=== PATIENT | female | born 1995 | race Caucasian/White ===

== ENCOUNTER 2017-07-29 15:42 | Outpatient (CLI) | payer OTHER ==
--- NOTE | 2017-07-29 17:01 | Non Stress Test Report ---
Non Stress Test Datetime Report Generated by CPN: 07/29/2017 17:01 DEMOGRAPHIC EGA NST: 35.4 INDICATION Indication for Study: Other Indication for Study (NST) Other: GDM, Ele[employer] FHR in office VITAL SIGNS Temperature - NST: 97.6 Pulse - NST: 98 RESP - NST: 16 NBPSYS NST: 128 NBPDIA NST: 80 MONITORING Monitor Explained: Monitor Explained; Test Explained; Patient Verbalized Understanding; Other Time on Monitor: 07/29/2017 15:55 Time off Monitor: 07/29/2017 16:29 NST Duration: 34 NST INTERVENTIONS NST Interventions: PO Hydration Physician Notified NST: A. Emmel, Provider reviewed strip BABY A: [id number] BABY A Movement : Present Contraction Frequency : No ucs FHR Baseline : 160 Accelerations : 15X15 Decelerations : None Variability : Moderate 6-25bpm NST Review: Meets Criteria for Reactive NST NST Review and Verified By : LIA MAR RN NST Results: Reactive NST REPORT Report Trigger: Send Report
--- NOTE | 2017-07-29 18:51 | RADIOLOGY REPORT (SQ) ---
EXAM DESCRIPTION: U/S OB LIMITED COMPLETED DATE/TIME: 07/29/2017 6:42 pm REASON FOR STUDY: GDM COMPARISON: None. TECHNIQUE: Limited transvaginal and transabdominal grayscale ultrasound for evaluation of specific r equested obstetrical parameters. LIMITATIONS: None. FINDINGS: CERVICAL LENGTH: 3.3 cm. Closed. EMILY: 16.5 cm. FHR: 171 beats per minute. PRESENTATION: Cephalic. OTHER: Estimated gestational age is 36 weeks 1 day. Estimated weight is 2938 g. This falls wit hin the 59th percentile. IMPRESSION: LIMITED OBSTETRICAL ULTRASOUND WITH MEASURED PARAMETERS DELINEATED ABOVE. Trimester of : Third trimester - 28 weeks to delivery. TECHNICAL DOCUMENTATION: JOB ID: [id number] [employer]- All Rights Reserved
== END 2017-07-29 18:48 | disposition home or self-care (01) ==
LOC: LC 15:42
PROVIDERS: ATTEND Specialist
DX: O36.8130 Decreased fetal movements, third trimester, not applicable or unspecified (principal); Z3A.35 35 weeks gestation of pregnancy
CPT/HCPCS: 59025; 76815

== ENCOUNTER 2017-08-05 14:34 | Inpatient (IN) | payer OTHER ==
[2017-08-05] MEDS ORDERED: RINGERS SOLUTION,LACTATED 1,000 ML IV PRN (15:10)
[2017-08-05 15:54] LABS: APPEARANCE,URINE CLEAR; BILIRUBIN,URINE NEGATIVE (NEGATIVE); GLUCOSE, URINE NEGATIVE (NEGATIVE); KETONES,URINE NEGATIVE (NEGATIVE); LEUKOCYTE ESTERASE,URINE NEGATIVE (NEGATIVE); NITRITE,URINE NEGATIVE (NEGATIVE); PROTEIN,URINE NEGATIVE (NEGATIVE); URINE SPECIFIC GRAVITY 1.004; UROBILINOGEN,URINE NEGATIVE mg/dL (<2.0)
[2017-08-05 16:01] LABS: ABSOLUTE LYMPHOCYTES (AUTO) 1.2 10^3/uL (0.5-4.7); ABSOLUTE MONOCYTES (AUTO) 0.5 10^3/uL (0.1-1.4); ABSOLUTE NEUT (AUTO) 6.8 10^3/uL (1.7-8.2); BASOPHILS % (AUTO) 0.2 % (0-2); EOSINOPHILS % (AUTO) 0.1 % (0-6); HEMATOCRIT 29.8 % (36.0-47.0); HEMOGLOBIN 10.3 g/dL (12.0-15.5); HGB HCT DIFFERENCE 1.1; LYMPHOCYTES % (AUTO) 14.3 % (13-45); MEAN CORPUSCULAR HEMOGLOBIN 28.3 pg (27.0-33.4); MEAN CORPUSCULAR HGB CONC 34.6 g/dL (32.0-36.0); MEAN CORPUSCULAR VOLUME 82 fl (80-97); MONOCYTES % (AUTO) 5.8 % (3-13); RED BLOOD COUNT 3.64 10^6/uL (3.72-5.28); RED CELL DISTRIBUTION WIDTH 14.5 % (11.5-14.0); SEGMENTED NEUTROPHILS % (AUTO) 79.6 % (42-78); WHITE BLOOD COUNT 8.5 10^3/uL (4.0-10.5)
[2017-08-05 16:02] LABS: URINE BARBITURATES SCREEN NEGATIVE; URINE METHADONE SCREEN NEGATIVE; URINE OPIATES LOW NEGATIVE; URINE PHENCYCLIDINE SCREEN NEGATIVE
[2017-08-05] MEDS ORDERED: PENICILLIN G-K 5 MILLION UNIT VIAL ONE ×2 (16:10→20:53)
[2017-08-05] MEDS ORDERED: OXYTOCIN/NORMAL SALINE 20 UNIT/1,000 ML RTUINJ IV PRN (16:10)
[2017-08-05] MEDS ORDERED: OXYTOCIN/NORMAL SALINE 20 UNIT/1,000 ML RTUINJ ONE (16:10)
[2017-08-05] MEDS ORDERED: PENICILLIN G POTASSIUM 5,000,000 UNIT in DEXTROSE 5%-WATER 100 ML IV ONE (16:11)
[2017-08-05 17:15] LABS: CHLAM PCR NOT DETECTED (NOT DETECT)
--- NOTE | 2017-08-05 18:49 | L&D Progress Notes ---
PROGRESS NOTES Datetime Report Generated by CPN: 08/05/2017 18:49 PROGRESS NOTE Impression: Normal Progression of Labor Procedures: Sterile Vag Exam Procedures- Other: Cooks Catheter placement Plan: Induction Informed Consent Obtained: Vaginal Delivery; Induction of Labor; Risks, Benefits and Alternatives Discussed Comment: Vertex by US. Cvx 1/50/-3/post/medium. Continue pitocin. Cooks catheter placed. reviewed IOL due to PROM at 36+4ega. PCN for GBS prophy. Nubain for pain now per pt request. Anticpate . Reassuring FWB. Pelvis adequate for SARA VAGINAL EXAM Dilatation: 2 Effacement: 80 Station: -3 Contractions: irregular MEMBRANES Membranes: Ruptured Amniotic Fluid Color: Clear FETUS A FHR - Baseline: 150 Monitoring: External US Variability: Moderate 6-25bpm Accelerations: 15X15 Decelerations: None FHR Category: Category I Estimated Weight (gm): 2900 Presentation: Vertex SIGNATURE SIGNATURE: [id number];[id number] SIGNATURE: [id number] Signature: with User ID: [email or web address]
[2017-08-05] MEDS ORDERED: NALBUPHINE HCL INJ 10 MG/1 ML AMPULE ONE (19:04)
[2017-08-05] MEDS ORDERED: NALBUPHINE HCL INJ 10 MG/1 ML AMPULE INJ ONE (19:10)
[2017-08-05] MEDS ORDERED: PENICILLIN G POTASSIUM 2,500,000 UNIT in DEXTROSE 5%-WATER 50 ML IV SCH (20:12)
[2017-08-05] MEDS: PENICILLIN G-K 5 MILLION UNIT VIAL IV SCH (20:56)
[2017-08-05] MEDS ORDERED: ONDANSETRON HCL INJ/PF 4 MG/2 ML SDV ONE (22:07)
[2017-08-05] MEDS ORDERED: ONDANSETRON HCL INJ/PF 4 MG/2 ML SDV IV ONE (22:20)
--- NOTE | 2017-08-05 23:01 | L&D Progress Notes ---
PROGRESS NOTES Datetime Report Generated by CPN: 08/05/2017 23:00 PROGRESS NOTE Impression: Normal Progression of Labor Procedures: Sterile Vag Exam Plan: Continue Present Management; Induction Informed Consent Obtained: Vaginal Delivery; Induction of Labor; Risks, Benefits and Alternatives Discussed Vital Signs : Reviewed Comment: Cervix exam done. FB removed. cvx 6/60/-2. Pt desires epidural at some time but desires to trial of birthing ball and moving during monitoring. Anticipate . VAGINAL EXAM Dilatation: 6 Effacement: 60 Station: -2 Contractions: q2 MEMBRANES Membranes: Ruptured Amniotic Fluid Color: Clear FETUS A FHR - Baseline: 125 Monitoring: External US Variability: Moderate 6-25bpm Accelerations: 15X15 Decelerations: None FHR Category: Category I FETUS C SIGNATURE: [id number];[id number] Signature: with User ID: [email or web address]
--- NOTE | 2017-08-06 00:22 | L&D Progress Notes ---
PROGRESS NOTES Datetime Report Generated by CPN: 08/06/2017 00:22 PROGRESS NOTE Impression: Normal Progression of Labor Procedures: Sterile Vag Exam Plan: Continue Present Management; Induction Informed Consent Obtained: Vaginal Delivery; Risks, Benefits and Alternatives Discussed Vital Signs : Reviewed Comment: pt desires epidural. Cvx now /-1. Anticiapte . Pt to obtain epidural - will notify ANesthesia FETUS A FHR - Baseline: 150 Variability: Moderate 6-25bpm Accelerations: 15X15 Decelerations: Variable FHR Category: Category I FETUS C SIGNATURE: [id number];[id number] Signature: Electronically signed by Crystal Mancera MD ([facility]) on 08/06/2017 at 00:21 with User ID: [email or web address]
[2017-08-06] MEDS ORDERED: EPHEDRINE SULFATE INJ 50 MG/1 ML AMPULE ONE (00:39)
[2017-08-06] MEDS ORDERED: BUPIVACAINE HCL 0.25 % INJ/PF (2.5 MG/1 ML) 30 ML VIAL ONE (00:40)
[2017-08-06] MEDS ORDERED: LIDOCAINE 1% INJ-PF (10 MG/ML) 30 ML SDV ONE (00:40)
[2017-08-06] MEDS ORDERED: FENTANYL/BUPIVACAINE/NS/PF 200 MCG/100 ML RTUINJ EPI ONE (00:40)
[2017-08-06] MEDS ORDERED: MISOPROSTOL 0.2 MG TABLET ONE (00:40)
[2017-08-06] MEDS ORDERED: PENICILLIN G-K 5 MILLION UNIT VIAL ONE ×2 (01:19→06:15)
[2017-08-06] MEDS: PENICILLIN G-K 5 MILLION UNIT VIAL IV SCH ×2 (01:28→06:16)
--- NOTE | 2017-08-06 07:33 | L&D Progress Notes ---
PROGRESS NOTES Datetime Report Generated by CPN: 08/06/2017 07:33 PROGRESS NOTE Impression: Normal Progression of Labor Procedures- Other: pitocin restarted Plan: Continue Present Management; Induction Informed Consent Obtained: Vaginal Delivery; Risks, Benefits and Alternatives Discussed Vital Signs : Reviewed; Within Normal Limits Comment: Pt havng irregular early this am after epidural. Pitocin rest done with 250ml bolus of D5. Pitocin now restarted and at 9. Plan to increase pitocin per protocol. last cvx 3xam and still felt like bryan bulb cervix. FETUS A FHR - Baseline: 135 Variability: Moderate 6-25bpm Accelerations: 15X15 Decelerations: None FHR Category: Category I FETUS C SIGNATURE: [id number];[id number] Signature: with User ID: [email or web address]
[2017-08-06] MEDS ORDERED: OXYTOCIN/NORMAL SALINE 20 UNIT/1,000 ML RTUINJ ONE (08:40)
[2017-08-06] MEDS ORDERED: DIBUCAINE 1% OINTMENT 28 GM TP PRN (10:18)
[2017-08-06] MEDS ORDERED: ACETAMINOPHEN 650 MG SUPP.RECT PR PRN (10:18)
[2017-08-06] MEDS ORDERED: PROMETHAZINE HCL 25 MG SUPP.RECT PR PRN (10:18)
[2017-08-06] MEDS ORDERED: OXYTOCIN/NORMAL SALINE 20 UNIT/1,000 ML RTUINJ IV PRN (10:18)
[2017-08-06] MEDS ORDERED: MAGNESIUM HYDROXIDE SUSP 30 ML UDCUP PO PRN (10:18)
[2017-08-06] MEDS ORDERED: ACETAMINOPHEN WITH CODEINE #3 TABLET PO PRN ×2 (10:18)
[2017-08-06] MEDS ORDERED: GLYCERIN/WITCH HAZEL LEAF 1 EACH MED..PAD TP PRN (10:18)
[2017-08-06] MEDS ORDERED: DIPH/PERTUSS(ACELL)/TETANUS VAC/PF 0.5 ML SYR (>=10YO) IM PRN (10:18)
[2017-08-06] MEDS ORDERED: ZOLPIDEM TARTRATE 5 MG TABLET PO PRN (10:18)
[2017-08-06] MEDS ORDERED: NA PHOS,M-B/NA PHOS,DI-BA (ADULT) 133 ML ENEMA PR PRN (10:18)
[2017-08-06] MEDS ORDERED: PROMETHAZINE HCL INJ 25 MG/1 ML VIAL IV PRN (10:18)
[2017-08-06] MEDS ORDERED: PROMETHAZINE HCL 25 MG TABLET PO PRN (10:18)
[2017-08-06] MEDS ORDERED: MEASLES,MUMPS&RUBELLA VACC/PF 0.5 ML VIAL SUBCUT PRN (10:18)
[2017-08-06] MEDS ORDERED: BENZOCAINE/MENTHOL AEROSOL SPRAY 56 ML TOP PRN (10:18)
[2017-08-06] MEDS ORDERED: PSEUDOEPHEDRINE HCL 30 MG TABLET PO PRN (10:18)
[2017-08-06] MEDS ORDERED: DIPHENHYDRAMINE HCL 25 MG CAPSULE PO PRN (10:18)
--- NOTE | 2017-08-06 11:54 | Admission Physical ---
Datetime Report Generated by CPN: 08/06/2017 11:54 CURRENT ADMISSION Hx Assessment: The History has been Reviewed and is Current Chief Complaint: Suspected Ruptured Membranes Chief Complaint Other: SROM 1400 Indication for Induction: Not Applicable Admit Impression- Other: augmentation Admit Plan: Admit to Unit; Initiate Labor Augmentation Protocol ALLERGIES Medication Allergies: No Medication Allergies: No Known Allergies (08/05/2017) Medication Allergies: No Known Allergies (07/29/2017) Latex: No Latex Allergies OBSTETRICAL HISTORY EDC: 08/29/2017 00:00 : 1 Para: 0 Term: 0 : 0 SAB: 0 IAB: 0 Ectopic: 0 Livin Cesareans: 0 VBACs: 0 Multiple Births: 0 Gestational Diabetes: Yes Rh Sensitization: No Incompetent Cervix: No MARY: No Infertility: No ART Treatment: No Uterine Anomaly: No IUGR: No Hx Previous C/S: No Macrosomia: No Hx Loss/Stillborn: No PIH: No Hx : No Placenta Previa/Abruption: No Depression/PP Depression: No PTL/PROM: No Post Hemorrhage: No Current Procedures: Ultrasound; NST Obstetrical History Comments: G1 - Current GDM SEE RECORDS Alcohol: No Marijuana : No Cocaine: No Other Illicit Drugs: No Cigarettes: Never Smoker. [id number] MEDICAL HISTORY Diabetes: Yes Diabetes Type: Gestational Diabetes Blood Transfusion: No Pulmonary Disease (Asthma, TB): No Breast Disease: No Hypertension: No Database Manager Surgery: No Heart Disease: No Hosp/Surgery: No Autoimmune Disorder: No Anesthetic Complications: No Kidney Disease: No Abnormal Pap Smear: No Neuro/Epilepsy: No Psychiatric Disorders: No Other Medical Diseases: No Hepatitis/Liver Disease: No Significant Family History: No Varicosities/Phlebitis: No Trauma/Violence : No Thyroid Dysfunction: No INFECTIOUS HISTORY Gonorrhea: No Genital Herpes: No Chlamydia: No Tuberculosis: No Syphilis: No Hepatitis: No HIV/AIDS Exposure: No Rash or Viral Illness: No HPV: No PHYSICAL EXAM General: Normal HEENT: Normal Neurologic: Normal Thyroid: Normal Heart: Normal Lungs: Normal Breast: Normal Back: Normal Abdomen: Normal Genitourinary Exam: Normal Extremities: Normal DTRs: Normal Pelvic Type: Adequate Vital Signs: Reviewed VAGINAL EXAM Dilatation: 6 Dilatation: 2 Effacement: 60 Effacement: 80 Station: -2 Station: -3 Contraction Comments: q2 Contraction Comments: irregular MEMBRANES Membranes: Ruptured Membranes: Ruptured Amniotic Fluid Color: Clear Amniotic Fluid Color: Clear FETUS A EGA: 36.4 Monitoring: External US FHR- Baseline: 150 Variability: Moderate 6-25bpm Accelerations: 15X15 Decelerations: None FHR Category: Category I Estimated Weight (gm): 2900 Presentation: Vertex Admit Comment: SROM at 1400, clear, irregular ctx. GBS unknown, will tx with pcn GDMA1 Rubella non-immune NKDA Admit to L _ D PCN, Pitocin per protocol. PLANS FOR LABOR AND DELIVERY Labor and Delivery: None Pain Management: Epidural Feeding Preference: Breast Benefit of Breast Feed Discussed: Yes INFORMED CONSENT Informed Consent Obtained: Vaginal Delivery; Risks, Benefits and Alternatives Discussed Informed Consent Obtained: Vaginal Delivery; Risks, Benefits and Alternatives Discussed Informed Consent Obtained: Vaginal Delivery; Induction of Labor; Risks, Benefits and Alternatives Discussed Informed Consent Obtained: Vaginal Delivery; Induction of Labor; Risks, Benefits and Alternatives Discussed Assignment: Crystal Mancera MD Signature: with User ID: [email or web address] : with User ID: [email or web address]
--- NOTE | 2017-08-06 12:42 | Delivery Summary ---
Del Sum A-C Datetime Report Generated by CPN: 08/06/2017 12:42 DELIVERY PERSONNEL DELIVERY PERSONNEL: [id number] Delivery Doctor:: Linda Sequeira MD Nurse Machine Washer Certified:: Samanta Lopez CNM Labor and Delivery Nurse:: Devin Redmond RNmanager china Nurse:: Carito Mcmillan RN Nursery Nurse:: Ana Isabel RN Combat Engineer/PROJECT MANAGEMENT SPECIALIST: Latisha Nuno CNA II Combat Engineer/PROJECT MANAGEMENT SPECIALIST: Cecelia Reed, MANUFACTURING ENGINEER AUTOMOTIVE MATERNAL INFORMATION Delivery Anesthesia: Epidural Medications After Delivery: Pitocin Bolus-Please Comment; Pitocin Drip 20 Units/1000ml NSS Estimated Blood Loss (ml): 200 Maternal Complications: Premature Rupture of Membranes LABOR SUMMARY EDC: 08/29/2017 00:00 No. Babies in Womb: 1 Attempted: No Labor Anesthesia: Epidural LABOR INFORMATION Reason for Induction: Not Applicable Onset of Labor: 08/06/2017 16:30 Complete Dilatation: 08/06/2017 08:20 Oxytocin: Augmentation Group B Beta Strep: unknown Antibiotics # of Doses: 0 Antibiotics Time of Last Dose: 614 Name of Antibiotic Given: N/A Steroids Given: None Reason Steroids Not Administered: Not Applicable MEMBRANES Membranes Rupture Method: Spontaneous Rupture of Membranes: 08/05/2017 14:00 Length of Rupture (hr): 19.50 Amniotic Fluid Color: Clear Amniotic Fluid Amount: None Amniotic Fluid Odor: Normal STAGES OF LABOR Stage 1 hr: -8 Stage 1 min: -10 Stage 2 hr: 1 Stage 2 min: 10 Stage 3 hr: 0 Stage 3 min: 2 Total Time in Labor hr: -6 Total Time in Labor min: -58 VAGINAL DELIVERY Episiotomy: None Laceration Extension: Second Degree Laceration Type: Perineal; Vaginal Other Laceration: labial lac Laceration Repair: Yes Laceration Repair Note: 2-0 chromic repair in normal fashion Sponge Count Correct: N/A Sharps Count Correct: Yes CSECTION DELIVERY Primary Indication: N/A Secondary Indication: N/A CSection Incidence: N/A Labor: N/A Elective: N/A CSection Incision: N/A BABY A INFORMATION Delivery Date/Time: 08/06/2017 09:30 Method of Delivery: Vaginal Born in Route : No : N/A Forceps: N/A Vacuum Extraction: Successful Shoulder Dystocia : No ASSISTED DELIVERY BABY A Indication for Assisted Delivery: maternal exhaustion Vacuum Number of Pulls: 1 Vacuum Number of PopOffs: 0 Vacuum Maximum Pressure Obtained: 450 Vacuum Account Director: [place] Total Time Vacuum Applied: 25 seconds of pressure--1 push PRESENTATION/POSITION BABY A Presentation: Cephalic Cephalic Presentation: Vertex Vertex Position: OA compound hand Breech Presentation: N/A PLACENTA INFORMATION BABY A Placenta Delivery Time : 08/06/2017 09:32 Placenta Method of Delivery: Spontaneous Placenta Status: Delivered SCORES BABY A Heart Rate 1 min: >100 bpm Resp Effort 1 min: Good Cry Reflex Irritability 1 min: Cough or Sneeze or Pulls Away Muscle Tone 1 min: Active Motion Color 1 min: Body [place], Extremities Blue Resuscitation Effort 1 min: Tactile Stimulation SCORE 1 MIN: 9 Heart Rate 5 min: >100 bpm Resp Effort 5 min: Good Cry Reflex Irritability 5 min: Cough or Sneeze or Pulls Away Muscle Tone 5 min: Active Motion Color 5 min: Body [place], Extremities Blue Resuscitation Effort 5 min: N/A SCORE 5 MIN: 9 INFANT INFORMATION BABY A Gestational Age at Delivery: 36.5 Gestational Status: Late - 34- 36.6 Weeks Infant Outcome : Liveborn Condition : Stable Sex: Female IDENTIFICATION BABY A Verification Date/Time: 08/06/2017 09:50 ID Band Number: [id number] Mother's Name Verified: Yes RN Verifying Infant: Devin Redmond RN Additional Verifying Personnel: Latisha Nuno CNA II WEIGHT/LENGTH BABY A Infant Birthweight (gm): 3060 Infant Weight (lb): 6 Infant Weight (oz): 12 Length (in): 20.50 Infant Length (cm): 52.07 CORD INFORMATION BABY A No. Cord Vessels: 3 Nuchal Cord : N/A Cord Blood Taken: Yes-For Eval (Mom's Blood Type - or O+) Suction: None ASSESSMENT BABY A Physical Findings at Delivery: Molding of the Head Skin to Skin: Yes Skin to Skin Time (min): 60 BABY B INFORMATION : N/A SIGNATURES Signature: with User ID: [email or web address]
[2017-08-06] MEDS: IBUPROFEN 800 MG TABLET PO SCH ×2 (13:00→21:40)
[2017-08-06] MEDS: FERROUS SULFATE 325 MG TABLET PO SCH (17:15)
[2017-08-06] MEDS: DOCUSATE SODIUM 100 MG CAPSULE PO SCH (17:15)
[2017-08-06] MEDS: FAMOTIDINE 20 MG TABLET PO SCH (21:40)
[2017-08-07] MEDS: IBUPROFEN 800 MG TABLET PO SCH ×3 (05:34→21:27)
[2017-08-07 08:15] LABS: HEMOGLOBIN 8.9 g/dL (12.0-15.5); HGB HCT DIFFERENCE 0.7; MEAN CORPUSCULAR HEMOGLOBIN 28.4 pg (27.0-33.4); MEAN CORPUSCULAR HGB CONC 34.3 g/dL (32.0-36.0); MEAN CORPUSCULAR VOLUME 83 fl (80-97); RED BLOOD COUNT 3.15 10^6/uL (3.72-5.28); RED CELL DISTRIBUTION WIDTH 14.3 % (11.5-14.0); WHITE BLOOD COUNT 6.8 10^3/uL (4.0-10.5)
[2017-08-07] MEDS: SENNOSIDES/DOCUSATE 8.6-50 MG 1 EACH TABLET PO SCH (09:15)
[2017-08-07] MEDS: FERROUS SULFATE 325 MG TABLET PO SCH ×2 (09:15→18:13)
[2017-08-07] MEDS: PRENATAL VITAMIN W-O CA NO5/FE FUMARATE/FA CAPSULE PO SCH (09:16)
[2017-08-07] MEDS: DOCUSATE SODIUM 100 MG CAPSULE PO SCH ×2 (09:16→18:13)
[2017-08-07] MEDS: FAMOTIDINE 20 MG TABLET PO SCH ×2 (09:16→21:28)
--- NOTE | 2017-08-07 11:30 | PDOC PROGRESS REPORT ---
Subjective-OB Subjective: Post Delivery Day: 21 year old. Denies any needs at this time. Pt reports light bleeding, regular diet, voiding without difficulty. She has no complaints. Physical Exam (OB) Vital Signs: Temp Pulse Resp BP Pulse Ox 98.0 F 83 16 111/64 99 08/07/17 07:34 08/07/17 07:34 08/07/17 07:34 08/07/17 07:34 08/07/17 07:34 Intake & Output 08/06/17 08/07/17 08/08/17 06:59 06:59 06:59 Intake Total 0 Balance 0 Weight 99 kg - Lochia Lochia Amount: Scant < 10 ml Lochia Color: Rubra/Red - Abdomen Description: Soft Hernia Present: No Fundal Description: Firm, Midline Fundal Height: u/u - u/2 Objective-Diagnostic Laboratory: 08/07/17 07:24 08/07/17 07:24 WBC 6.8 RBC 3.15 L Hgb 8.9 L Hct 26.0 L MCV 83 MCH 28.4 MCHC 34.3 RDW 14.3 H Plt Count 197 Assessment and Plan(PN) - Assessment and Plan (1) premature rupture of membranes Is this a current diagnosis for this admission?: Yes (2) Vacuum extractor delivery, delivered Is this a current diagnosis for this admission?: Yes - Time Spent with Patient Time with patient: Less than 15 minutes Medications reviewed and adjusted accordingly: Yes - Disposition Anticipated Discharge: Home Within: within 24 hours
[2017-08-08] MEDS: IBUPROFEN 800 MG TABLET PO SCH ×2 (05:53→14:52)
--- NOTE | 2017-08-08 07:27 | PDOC PROGRESS REPORT ---
Subjective-OB Subjective: Post Delivery Day: 21 year old. Denies any needs at this time Doing well, ready to go home, voiding, ambulating, Physical Exam (OB) Vital Signs: Temp Pulse Resp BP Pulse Ox 98.1 F 83 16 120/67 97 08/07/17 20:06 08/07/17 20:06 08/07/17 20:06 08/07/17 20:06 08/07/17 20:06 Intake & Output 08/07/17 08/08/17 08/09/17 06:59 06:59 06:59 Intake Total 0 Balance 0 - PIH/Pre-Eclampsia DTR's: 2 + Clonus: Negative Headache: Absent Epigastric Pain: No Visual Changes: No - Lochia Lochia Amount: Scant < 10 ml Lochia Color: Rubra/Red - Abdomen Description: Soft, Round Hernia Present: No Fundal Description: Firm, Midline Fundal Height: u/u - u/2 Objective-Diagnostic Laboratory: 08/07/17 07:24 08/07/17 07:24 WBC 6.8 RBC 3.15 L Hgb 8.9 L Hct 26.0 L MCV 83 MCH 28.4 MCHC 34.3 RDW 14.3 H Plt Count 197 Assessment and Plan(PN) - Assessment and Plan (1) premature rupture of membranes Qualifiers: PROM onset of labor timing: onset of labor within 24 hours of rupture Qualified Code(s): O42.019 - premature rupture of membranes, onset of labor within 24 hours of rupture, unspecified trimester Is this a current diagnosis for this admission?: Yes (2) Vacuum extractor delivery, delivered Is this a current diagnosis for this admission?: Yes - Time Spent with Patient Time with patient: Less than 15 minutes Medications reviewed and adjusted accordingly: Yes - Disposition Anticipated Discharge: Home Within: Other - home today
--- NOTE | 2017-08-08 07:32 | PDOC DISCHARGE SUMMARY ---
Final Diagnosis Discharge Date: 08/08/17 - Final Diagnosis (1) premature rupture of membranes Is this a current diagnosis for this admission?: Yes (2) Vacuum extractor delivery, delivered Is this a current diagnosis for this admission?: Yes Discharge Data - Discharge Medication Home Medications: Nystatin/Triamcin [Nystatin-Triamcinolone Ointm] 15 gm TP DAILY PRN 07/29/17 No122/Iron/Folic Acid [ Multi Tablet] 1 each PO DAILY 07/29/17 Gestational Age: 36.5 Reason(s) for Admission: PROM, Labor, Gestional Diabetes Procedures: NST, Ultrasound Intrapartum Procedure(s): Vacuum Extraction - Data Baby 1 Female at 1 minute: 9 at 5 minutes: 9 Weight: 3.062 kg Home with Mother: Yes Complications: No - Diagnosis Test Laboratory: Temp Pulse Resp BP Pulse Ox 98.1 F 83 16 120/67 97 08/07/17 20:06 08/07/17 20:06 08/07/17 20:06 08/07/17 20:06 08/07/17 20:06 08/05/17 08/05/17 08/07/17 15:14 15:26 07:24 RBC 3.64 L 3.15 L Hgb 10.3 L 8.9 L Hct 29.8 L 26.0 L Urine Opiates Screen NEGATIVE - Discharge information/Instructions Discharge Activity: Activity As Tolerated, Balance Activity w/Rest, No Lifting Over 10 Pounds, No Lifting/Push/Pulling, Pelvic Rest, No tub bath Discharge Diet: As Tolerated, Regular Disposition: HOME, SELF-CARE Follow up with: [facility] in: 4, Weeks
[2017-08-08 09:06] VITALS: BP 133/70
[2017-08-08] MEDS: FAMOTIDINE 20 MG TABLET PO SCH (10:42)
[2017-08-08] MEDS: FERROUS SULFATE 325 MG TABLET PO SCH ×2 (10:43→17:53)
[2017-08-08] MEDS: DOCUSATE SODIUM 100 MG CAPSULE PO SCH ×2 (10:43→17:53)
[2017-08-08] MEDS: SENNOSIDES/DOCUSATE 8.6-50 MG 1 EACH TABLET PO SCH (10:44)
[2017-08-08] MEDS: PRENATAL VITAMIN W-O CA NO5/FE FUMARATE/FA CAPSULE PO SCH (10:44)
== END 2017-08-08 18:30 | disposition home or self-care (01) | DRG 775 ==
LOC: LC 14:34 → LR 15:08 → 2S 08-06 11:53 → 2N 08-06 11:56
PROVIDERS: ADMIT Student in an Organized Health Care Education/Training Program; ATTEND Student in an Organized Health Care Education/Training Program
PROC: 4A1HXCZ Monitoring of Products of Conception, Cardiac Rate, External Approach (ICD-10-PCS; 2017-08-05)
PROC: 10D07Z6 Extraction of Products of Conception, Vacuum, Via Natural or Artificial Opening (ICD-10-PCS; principal; 2017-08-06)
PROC: 0KQM0ZZ Repair Perineum Muscle, Open Approach (ICD-10-PCS; 2017-08-06)
PROC: 3E0234Z Introduction of Serum, Toxoid and Vaccine into Muscle, Percutaneous Approach (ICD-10-PCS; 2017-08-08)
DX: O42.013 Preterm premature rupture of membranes, onset of labor within 24 hours of rupture, third trimester (principal); O75.81 Maternal exhaustion complicating labor and delivery; O70.1 Second degree perineal laceration during delivery; O32.6XX0 Maternal care for compound presentation, not applicable or unspecified; O24.429 Gestational diabetes mellitus in childbirth, unspecified control; Z3A.36 36 weeks gestation of pregnancy; Z37.0 Single live birth; Z23 Encounter for immunization
CPT/HCPCS: 36415; 80307; 81001; 85025; 85027; 86850; 86900; 86901; 87491; 87591; 90707; C1726; J2300; J2405; J2540; J2590; J3490